=== PATIENT | female | born 1950 | race Caucasian/White ===

== ENCOUNTER 2016-09-05 06:59 | Outpatient (RCR) | payer MEDICARE, BC ==
[~2016-09-05] VITALS: Ht 147.3 cm; Wt 46.7 kg
[2016-09-05] MEDS ORDERED: Succinylcholine 20mg/ml 10ml vial ONE ×3 (07:00)
[2016-09-05] MEDS ORDERED: NS 550ML IV ONE ×3 (07:00)
[2016-09-05] MEDS ORDERED: Methohexital Sodium Syr 100mg/10ml IVP ONE ×3 (07:00)
[2016-09-05] MEDS ORDERED: Midazolam 2mg/2ml Inj ONE ×3 (07:00)
[2016-09-06] MEDS ORDERED: Succinylcholine 20mg/ml 10ml vial ONE (08:00)
[2016-09-06] MEDS ORDERED: Midazolam 2mg/2ml Inj ONE (08:00)
[2016-09-06] MEDS ORDERED: Methohexital Sodium Syr 100mg/10ml IVP ONE (08:00)
[2016-09-06] MEDS ORDERED: NS 550ML IV ONE (08:00)
[2016-09-09] MEDS ORDERED: Methohexital Sodium Syr 100mg/10ml IVP ONE (08:00)
[2016-09-09] MEDS ORDERED: Succinylcholine 20mg/ml 10ml vial ONE (08:00)
[2016-09-09] MEDS ORDERED: NS 550ML IV ONE (08:00)
[2016-09-09] MEDS ORDERED: Midazolam 2mg/2ml Inj ONE (08:00)
[2016-09-09] MEDS ORDERED: Atropine Sulfate 0.4mg/ml inj IVP PRN (15:30)
[2016-09-13] MEDS ORDERED: Methohexital Sodium Syr 100mg/10ml IVP ONE (12:00)
[2016-09-13] MEDS ORDERED: Succinylcholine 20mg/ml 10ml vial ONE (12:00)
[2016-09-13] MEDS ORDERED: Midazolam 2mg/2ml Inj ONE (12:00)
[2016-09-13] MEDS ORDERED: NS 550ML IV ONE (12:00)
== END 2016-10-01 | disposition home or self-care (01) ==
LOC: ECT 06:59
DX: F33.2 Major depressive disorder, recurrent severe without psychotic features (principal)
CPT/HCPCS: 90870; J0330; J2250; J7040

== ENCOUNTER 2016-10-16 05:13 | Outpatient (RCR) | payer MEDICARE, BC ==
[~2016-10-16] VITALS: Ht 147.3 cm; Wt 46.7 kg
[2016-10-16] MEDS ORDERED: Succinylcholine 20mg/ml 10ml vial ONE (05:14)
[2016-10-16] MEDS ORDERED: NS 550ML IV ONE (05:14)
[2016-10-16] MEDS ORDERED: Methohexital Sodium Syr 100mg/10ml IVP ONE (05:14)
[2016-10-16] MEDS ORDERED: Midazolam 2mg/2ml Inj ONE (05:14)
[2016-10-16] MEDS ORDERED: Atropine Sulfate 0.4mg/ml inj IVP PRN (17:30)
== END 2016-10-29 | disposition home or self-care (01) ==
LOC: ECT 05:13
DX: F33.2 Major depressive disorder, recurrent severe without psychotic features (principal)
CPT/HCPCS: 90870; J0330; J2250; J7040

== ENCOUNTER 2016-11-11 08:56 | Outpatient (RCR) | payer MEDICARE, BC ==
[~2016-11-11] VITALS: Ht 147.3 cm; Wt 46.7 kg
[2016-11-11] MEDS ORDERED: Succinylcholine 20mg/ml 10ml vial ONE (08:57)
[2016-11-11] MEDS ORDERED: Midazolam 2mg/2ml Inj ONE (08:57)
[2016-11-11] MEDS ORDERED: NS 550ML IV ONE (08:57)
[2016-11-11] MEDS ORDERED: Methohexital Sodium Syr 100mg/10ml IVP ONE (08:57)
[2016-11-20] MEDS ORDERED: Atropine Sulfate 0.4mg/ml inj IVP PRN (11:59)
== END 2016-11-29 | disposition home or self-care (01) ==
LOC: ECT 08:56
DX: F33.2 Major depressive disorder, recurrent severe without psychotic features (principal)
CPT/HCPCS: 90870; J0330; J2250; J7040

== ENCOUNTER 2016-12-04 11:27 | Outpatient (RCR) | payer MEDICARE, BC ==
[~2016-12-04] VITALS: Ht 147.3 cm; Wt 46.7 kg
[2016-12-04] MEDS ORDERED: Succinylcholine 20mg/ml 10ml vial ONE ×2 (11:28)
[2016-12-04] MEDS ORDERED: NS 550ML IV ONE ×2 (11:28)
[2016-12-04] MEDS ORDERED: Midazolam 2mg/2ml Inj ONE ×2 (11:28)
[2016-12-04] MEDS ORDERED: Methohexital Sodium Syr 100mg/10ml IVP ONE ×2 (11:28)
[2016-12-11] MEDS ORDERED: NS 550ML IV ONE (12:30)
[2016-12-11] MEDS ORDERED: Methohexital Sodium Syr 100mg/10ml IVP ONE (12:30)
[2016-12-11] MEDS ORDERED: Midazolam 2mg/2ml Inj ONE (12:30)
[2016-12-11] MEDS ORDERED: Succinylcholine 20mg/ml 10ml vial ONE (12:30)
[2016-12-11] MEDS ORDERED: Atropine Sulfate 0.4mg/ml inj IVP PRN (17:45)
[2016-12-18] MEDS ORDERED: Esmolol 100mg/10ml Inj ONE (06:00)
[2016-12-18] MEDS ORDERED: Methohexital Sodium 500mg Vial IVP ONE (11:28)
[2016-12-18] MEDS ORDERED: Midazolam 2mg/2ml Inj ONE (11:28)
[2016-12-18] MEDS ORDERED: NS 550ML IV ONE (11:28)
[2016-12-18] MEDS ORDERED: Succinylcholine 20mg/ml 10ml vial ONE (11:28)
[2016-12-25] MEDS ORDERED: Midazolam 2mg/2ml Inj ONE (08:00)
[2016-12-25] MEDS ORDERED: NS 550ML IV ONE (08:00)
[2016-12-25] MEDS ORDERED: Methohexital Sodium Syr 100mg/10ml IVP ONE (08:00)
[2016-12-25] MEDS ORDERED: Succinylcholine 20mg/ml 10ml vial ONE (08:00)
[2016-12-25] MEDS ORDERED: Atropine Sulfate 0.4mg/ml inj IVP PRN (10:23)
== END 2016-12-29 | disposition home or self-care (01) ==
LOC: ECT 11:27
DX: F33.2 Major depressive disorder, recurrent severe without psychotic features (principal)
CPT/HCPCS: 90870; J0330; J2250; J7040; J3490

== ENCOUNTER 2017-01-06 09:13 | Outpatient (RCR) | payer MEDICARE, BC ==
[~2017-01-06] VITALS: Ht 147.3 cm; Wt 46.7 kg
[2017-01-06] MEDS ORDERED: Methohexital Sodium Syr 100mg/10ml IVP ONE (09:14)
[2017-01-06] MEDS ORDERED: NS 550ML IV ONE (09:14)
[2017-01-06] MEDS ORDERED: Midazolam 2mg/2ml Inj ONE (09:14)
[2017-01-06] MEDS ORDERED: Succinylcholine 20mg/ml 10ml vial ONE (09:14)
[2017-01-22] MEDS ORDERED: Midazolam 2mg/2ml Inj ONE (07:00)
[2017-01-22] MEDS ORDERED: NS 550ML IV ONE (07:00)
[2017-01-22] MEDS ORDERED: Succinylcholine 20mg/ml 10ml vial ONE (07:00)
[2017-01-22] MEDS ORDERED: Methohexital Sodium Syr 100mg/10ml IVP ONE (07:00)
== END 2017-01-29 | disposition home or self-care (01) ==
LOC: ECT 09:13
DX: F33.2 Major depressive disorder, recurrent severe without psychotic features (principal)
CPT/HCPCS: 90870; J0330; J2250; J7040

== ENCOUNTER 2017-02-17 05:30 | Outpatient (RCR) | payer MEDICARE, BC | END 2017-02-28 | disposition home or self-care (01) | LOC: ECT 05:30 | DX: Z53.20 Procedure and treatment not carried out because of patient's decision for unspecified reasons (principal) ==